=== PATIENT | female | born 1995 | race Caucasian/White ===

== ENCOUNTER → 2018-05-14 | Outpatient (CLI) | payer OTHER ==
--- NOTE | 2018-05-14 16:24 | RADIOLOGY IMAGING REPORT ---
FACILITY: [facility] PATIENT NAME: Erika Horowitz : 1995 MR: [id number] V: [id number] EXAM DATE: ORDERING PHYSICIAN: ROSETTE CORADO TECHNOLOGIST: Location: [facility] Patient: Erika Horowitz : 1995 Visit/Account:[id number] Date of Sevice: 05/14/2018 TRANSVAGINAL NON-OB HISTORY: Pelvic pain TECHNIQUE: Transvaginal ultrasound pelvis. COMPARISON: None. FINDINGS: Uterus: Anteflexed; 8 cm length x 4.7 cm AP x 6.2 cm transverse. Myometrium: Unremarkable. Endometrium: There is an IUD within the endometrial canal which appears to been good position.; doubl e thickness 4.6 mm. Cervix: Grossly negative. Ovaries: Right - 3 x 2 x 2.6 cm Left - 3.6 x 3.1 x 2.5 cm Blood flow is documented in each ovary by duplex Doppler ultrasound. Adnexa: Grossly unremarkable. Free pelvic fluid: Mild. IMPRESSION: IUD appears to be in good position within the endometrial canal Mild amount of free pelvic fluid Report Dictated By: Olga Olvera MD at 05/14/2018 4:09 PM Report E-Signed By: Olag Olvera MD at 05/14/2018 4:20 PM WSN:JUSTIN
== END ==
LOC: US 15:05
PROVIDERS: ATTEND Nurse Practitioner Family
DX: R10.9 Unspecified abdominal pain (principal)
CPT/HCPCS: 76830